=== PATIENT | female | born 1960 | race Caucasian/White ===

== ENCOUNTER → 2018-02-16 10:16 | Outpatient (CLI) | payer MEDICAID ==
[2015-11-18 06:58] VITALS: BMI 24.9
[~2018-02-16 10:16] MED LIST: CLARINEX5 MG PO; DEMEROL50 MG PO; MOBIC7.5 MG PO; NEURONTIN 300300 MG PO; SYNTHROID125 MCG PO; ZOCOR10 MG PO
== END | disposition home or self-care (01) ==
LOC: D.MRI 10:00
DX: R26.89 Other abnormalities of gait and mobility (principal)

== ENCOUNTER 2019-05-11 08:35 | Day surgery (SDC) | payer MEDICAID ==
[2019-05-09 09:57] LABS: HEMATOCRIT 42.5 % (36.0-48.0); HEMOGLOBIN 14.1 g/dL (12-16); MCH 30.9 pg (26.0-34.0); MCHC 33.2 g/dL (31.0-37.0); MCV 93.2 fL (80.0-100.0); MEAN PLATELET VOLUME 9.3 fL (7.4-10.4); RBC 4.56 10x6/uL (4.00-5.40); RDW 12.9 % (11.5-14.5); WBC 6.3 10x3/uL (4.8-10.8)
[~2019-05-11] VITALS: Ht 167.6 cm; Wt 70.8 kg
[~2019-05-11 08:35] MED LIST changes: +ALBUTEROL SULF8.5 GM INH; +AMITRIPTYLINE H50 MG PO; +CELEBREX200 MG PO; +SYNTHROID100 MCG PO; -SYNTHROID125 MCG PO; -ZOCOR10 MG PO; +ZOCOR40 MG PO
[2019-05-11 09:42] VITALS: BP 135/70; Ht 167.6 cm; Wt 70.8 kg
[2019-05-11] MEDS ORDERED: PERCOCET 10-321 EAC1 PO (12:19)
--- NOTE | 2019-05-11 12:40 | NUR ---
ANESTHESIA AT BEDSIDE FOR FEMORAL NERVE BLOCK
--- NOTE | 2019-05-11 15:11 | NUR ---
1325 PT IS C/O KNEE PAIN. MEDICATED WITH PERCOCET ORDERED. PAIN LEVEL IS 4 OUT OF 10. [address] ISRAEL TOLD HIM DURING POST OP VISIT THAT PT IS NOT TO BEAR WEIGHT ON RIGHT LEG FOR 4 WEEKS. PT AWAKE AND AGREES THAT SHE WAS TOLD THAT WELL. PT STATES SHE KNOWS HOW TO USE CRUTCHES AND WALKER. 1500 PT MET DISCHARGE CRITERIA AT 1430. WAITING ON WALKER TO BE DELIVERED TO PT. IV WAS DC'D AT 1431. CATHETER TIP INTACT. NO BLEEDING AT SITE. BANDAID APPLIED.
--- NOTE | 2019-05-12 10:43 | OP ---
PATIENT NAME: MARKUS LEMUS MEDICAL RECORD: [id number] :56 LOCATION:D.OPS ADMISSION DATE: SURGEON: LINDY LUZ, DAIJA ALMANZA DATE OF OPERATION: 05/11/2019 PREOPERATIVE DIAGNOSES: 1. Medial meniscus tear of the right knee. 2. Loose body of the right knee. 3. Large chondral defect of the medial femoral condyle. PREOPERATIVE DIAGNOSES: 1. Medial meniscus tear of the right knee. 2. Loose body of the right knee. 3. Large chondral defect of the medial femoral condyle. PROCEDURE: 1. Arthroscopic partial medial meniscectomy 2. Arthroscopic removal of loose body. 3. Open articular cartilage transplant medial femoral condyle - greater than 2 cm. SURGEON: Daija Israel MD MULTIMEDIA EDITOR: RADHA Ramirez INTRAOPERATIVE COMPLICATIONS: None. SUMMARY OF PATHOLOGIC FINDINGS: At the time of arthroscopy, the patient was indeed found to have a torn medial meniscus. The patient was also found to have a loose body, which corresponded to the large articular defect as seen on the patient's MRI. Ironically, previous surgery showed that the lateral femoral condyle had filled in nicely around the previous articular defect. Allograft transplant used Ar[employer] BioCartilage with PRP. OPERATIVE SUMMARY IN DETAIL: After obtaining the appropriate preoperative orthopedic surgery consent as well as anesthetic consultation, evaluation and clearance, the patient was brought to the operating room and placed on the operating table in a supine position. After adequate general laryngeal mask was administered, tourniquet was placed about the proximal aspect of the right lower extremity. The right lower extremity was then prepped and draped in routine sterile fashion. At this point, preoperative time-out was taken and agreed upon by all. The leg was elevated and exsanguinated, tourniquet inflated to 350 mmHg. Routine inferolateral portal was established followed by superomedial portal and inferomedial portal. Diagnostic arthroscopy revealed the patient to have all the above findings. Attention was first turned to removal of loose body. This was very gently removed with the arthroscopic resector. Having completed removal of this fragment to the cartilaginous piece, attention was turned to the medial meniscus. Combination of meniscotome as well as the resector was utilized to repair the tear in the medial meniscus. Having completed this, aggressive chondroplasty was performed over the large area to smoothen the edges and release any chondral flaps. This was a very large area greater than 2.5 cm. For this reason, a paramedian arthrotomy was performed and then under direct visualization, the area was thoroughly dried and cleansed and then with the Arthrex power pick abrasion chondroplasty was performed. Next, with the area completely dry and devoid of any saline from the arthroscopy, the OPERATIVE REPORT [id number] MARKUS LEMUS BioCartilage was mixed with approximately 0.8 mL of PRP then it was gently applied to the entire defect filling it in its entirety. Lastly BioGlue was utilized to stabilize the area. After the bowel glue had set, the knee was gently returned back to flexion. The capsule was closed with #1 Vicryl. This was followed by 2-0 Vicryl and skin bailey. This was done by Delbert Wilcox. The residual arthroscopy portals were closed with 4-0 Prolene. Sterile dressings were applied. Tourniquet was deflated. The patient was placed in an articulating hinged knee brace and will be made nonweightbearing to allow this to heal. The patient was awakened and taken to recovery in stable condition. All final needle and sponge counts were correct. TRANSINT:[id number] Voice Confirmation ID: [id number] DOCUMENT ID: [id number] DAIJA ISRAEL MD at 1043 CC: [id number] DICTATION DATE: 05/11/19 1223 FURNACE OPERATOR OIL OR GAS: 05/11/19 2250 [facility] 05/11/19 [id number] [place] [address]
== END 2019-05-11 15:40 | disposition home or self-care (01) ==
LOC: D.OPS 08:35 → D.PAN 10:45 → D.OPS 14:00
PROVIDERS: Anesthesiology; ATTEND Orthopaedic Surgery
DX: S83.241A Other tear of medial meniscus, current injury, right knee, initial encounter (principal); M25.561 Pain in right knee
CPT/HCPCS: 29881; 27415; 0232T

== ENCOUNTER → 2019-10-26 14:15 | Outpatient (CLI) | payer MEDICAID ==
[2019-05-11 09:42] VITALS: BMI 25.2
[~2019-10-26 14:15] MED LIST changes: +PERCOCET 10-321 EAC1 PO
== END ==
LOC: D.MAMMO 14:15
PROVIDERS: ATTEND Nurse Practitioner Family
DX: Z12.31 Encounter for screening mammogram for malignant neoplasm of breast (principal)